=== PATIENT | female | born 1975 | race Caucasian/White ===

== ENCOUNTER 2021-09-28 08:36 | Outpatient (CLI) | payer OTHER ==
--- NOTE | 2021-09-28 09:23 | XRAY Report ---
PROCEDURE: Hip w/Pelvis 2-3V LT INDICATIONS: LEFT HIP PAIN, PREVIOUS HIP REPLACEMENT SURGERY TECHNIQUE: AP pelvis with lateral view(s) of the left hip(s). COMPARISON: None. 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 Left hip alignment is anatomic. No gr oss hardware loosening or failure. No acute fractures or dislocations. Pelvic ring appears intact. No suspicious bony lesions. Soft tissues: The visualized bowel gas pattern is normal. No suspicious soft tissue calcifications. IMPRESSION: Extensive postsurgical changes in left hemipelvis and lower lumbar spine. Anatomic left h ip alignment. No acute fracture or dislocation. No gross hardware complication. Reviewed by: Primo Marinelli MD on 09/28/2021 9:22 AM PST Approved by: Primo Marinelli MD on 09/28/2021 9:22 AM PST Station ID: [id number]
== END 2021-09-28 08:37 | disposition home or self-care (01) ==
LOC: DI 08:36
PROVIDERS: ATTEND Registered Nurse
DX: M25.552 Pain in left hip (principal); Z96.642 Presence of left artificial hip joint

== ENCOUNTER 2021-09-28 15:17 | Outpatient (CLI) | payer OTHER ==
[2021-09-28 15:25] LABS: BASOPHILS % (AUTO) 0.3 %; EOSINOPHILS % (AUTO) 0.3 %; HGB - HEMOGLOBIN 11.4 g/dL (12.0-16.0); LYMPHOCYTES # (AUTO) 1.8 10^3/uL (1.5-3.5); LYMPHOCYTES % (AUTO) 28.1 %; MEAN CORPUSCULAR HEMOGLOBIN 31.9 pg (27.0-31.0); MEAN CORPUSCULAR HGB CONC 32.6 g/dL (32.0-36.0); MEAN PLATELET VOLUME 9.3 fL (7.9-10.8); MONOCYTES # (AUTO) 0.6 10^3/uL (0.0-1.0); MONOCYTES % (AUTO) 8.7 %; NEUTROPHILS # (AUTO) 3.9 10^3/uL (1.5-6.6); NEUTROPHILS % (AUTO) 62.4 %; PLT - PLATELET COUNT 341 10^3/uL (130-450); RED BLOOD COUNT 3.57 10^6/uL (4.20-5.40); RED CELL DISTRIBUTION WIDTH 15.6 % (12.0-15.0); WHITE BLOOD COUNT 6.3 x10^3/uL (4.8-10.8)
[2021-09-28 16:15] LABS: ALBUMIN/GLOBULIN RATIO 1.5 (1.0-2.2); BILIRUBIN,TOTAL 0.4 mg/dL (0.2-1.0); CALCIUM 8.8 mg/dL (8.5-10.3); CREATININE 0.7 mg/dL (0.4-1.0); POTASSIUM 4.6 mmol/L (3.5-5.0); TOTAL PROTEIN 6.7 g/dL (6.7-8.2)
== END 2021-09-28 15:18 | disposition home or self-care (01) ==
LOC: LAB.R 15:17
PROVIDERS: ATTEND Registered Nurse
DX: M25.50 Pain in unspecified joint (principal)
CPT/HCPCS: 80053; 85025; 85651

== ENCOUNTER 2021-10-03 15:02 | Outpatient (CLI) | payer OTHER ==
[2021-10-03 15:46] LABS: BILIRUBIN,URINE NEGATIVE (NEGATIVE); GLUCOSE, URINE (UA) NEGATIVE (NEGATIVE); KETONES,URINE (UA) TRACE mg/dL (NEGATIVE); LEUKOCYTE ESTERASE, URINE NEGATIVE (NEGATIVE); NITRITE,URINE NEGATIVE (NEGATIVE); OCCULT BLOOD,URINE LARGE (NEGATIVE); PROTEIN,URINE TRACE mg/dL (NEGATIVE); UROBILINOGEN,URINE 0.2 (NORMAL) E.U./dL (NORMAL)
[2021-10-03 15:48] LABS: CLARITY,URINE HAZY (CLEAR)
[2021-10-03 15:49] LABS: HCG UR QUAL NEGATIVE
[2021-10-03 16:12] LABS: AMORPHOUS SEDIMENT,UR Moderate /LPF; BACTERIA,URINE Few /HPF (None Seen); RBC,URINE TNTC /HPF (0-5); SQUAMOUS EPITHELIAL CELL,UR FEW Squamous (<= Few); WBC,URINE 0-3 /HPF (0-5)
[2021-10-03 22:14] LABS: CHLAMYDIA TRACHOMATIS DNA NEGATIVE (NEGATIVE); NEISSERIA GONORRHOEAE DNA NEGATIVE (NEGATIVE); TRICHOMONAS VAGINALIS DNA NEGATIVE (NEGATIVE)
== END 2021-10-03 15:03 | disposition home or self-care (01) ==
LOC: LAB.R 15:02
PROVIDERS: ATTEND Registered Nurse
DX: R82.79 Other abnormal findings on microbiological examination of urine (principal); Z32.01 Encounter for pregnancy test, result positive
CPT/HCPCS: 81001; 81025; 87086; 87491; 87591; 87661